=== PATIENT | female | born 1980 | race Caucasian/White ===

== ENCOUNTER 2016-12-02 03:09 | Day surgery (SDC) | payer OTHER ==
[~2016-12-02] VITALS: Ht 170.2 cm; Wt 60.7 kg
[2016-12-02] VITALS (8 sets, daily range): BP systolic 123–136; BP diastolic 80–92
[2016-12-02] MEDS ORDERED: ONDANSETRON 4MG/2ML VIAL (J2405) IV ONE (04:30)
[2016-12-02 04:35] LABS: CONTROL LINE HCG INT CTR LINE PRESENT
[2016-12-02 04:39] LABS: BASO % 0.5 % (0.0-1.0); EOS # 0.1 K/mm3 (0.0-0.50); LARGE UNSTAINED CELL # 0.1 K/mm3 (0.0-0.4); LARGE UNSTAINED CELL % 1.8 % (0.0-4.0); LYMPH # 2.5 K/mm3 (1.5-4.5); LYMPH % 29.7 % (24.0-44.0); MEAN CORPUSCULAR HEMOGLOBIN 31.4 pg (27.0-33.0); MEAN CORPUSCULAR HGB CONC 33.7 g/dl (32.0-36.5); MEAN CORPUSCULAR VOLUME 93.2 fl (80.0-96.0); MONO # 0.5 K/mm3 (0.0-0.8); MONO % 6.7 % (0.0-5.0); NEUTROPHILS # 4.7 K/mm3 (1.8-7.7); NEUTROPHILS % 60.3 % (36.0-66.0); PLATELET COUNT, AUTOMATED 263 k/mm3 (150-450); RED CELL DISTRIBUTION WIDTH 12.6 % (11.5-14.5); WHITE BLOOD COUNT 7.9 K/mm3 (4.0-10.0)
[2016-12-02 04:45] LABS: ALBUMIN/GLOBULIN RATIO 0.95 (1.00-1.93); ALKALINE PHOSPHATASE 83 U/L (45-117); ALT/SGPT 41 U/L (12-78); ANION GAP 10 MEQ/L (8-16); AST/SGOT 27 U/L (15-37); BILIRUBIN,DIRECT < 0.1 MG/DL (0.0-0.2); BILIRUBIN,TOTAL 0.2 MG/DL (0.2-1.0); BLOOD UREA NITROGEN 9 MG/DL (7-18); CALCIUM LEVEL 9.2 MG/DL (8.5-10.1); CARBON DIOXIDE LEVEL 26 MEQ/L (21-32); CHLORIDE LEVEL 102 MEQ/L (98-107); CREATININE FOR GFR 0.84 MG/DL (0.55-1.02); GLOMERULAR FILTRATION RATE > 60.0 (>60); GLUCOSE, FASTING 94 MG/DL (70-105); POTASSIUM SERUM 3.9 MEQ/L (3.5-5.1); SODIUM LEVEL 138 MEQ/L (136-145); TOTAL PROTEIN 8.2 GM/DL (6.4-8.2)
[2016-12-02] MEDS: MORPHINE 4 MG/ML 1ML SYRINGE IV PRN ×2 (05:04→05:44)
--- NOTE | 2016-12-02 05:10 | REPUSA ---
CLINICAL HISTORY: RUQ pain. TECHNIQUE: Realtime sonographic images were obtained in multiple projections. COMMENTS: The visualized liver is of uniform echo texture without evidence of mass or defect. There is no intra or extrahepatic biliary ductal dilatation. The common bile duct measures 4.1 mm. The gallbladder is physiologically distended with evidence of calculi. The gallbladder wall is thickened measuring 7.6 mm and there is no pericholecystic fluid. The visualized portions of the pancreas are unremarkable. Right kidney measures 9.6x4.5x4.2 cm. IMPRESSION: Cholelithiasis. Acute cholecystitis. Thank you for your kind referral of this patient.
[2016-12-02] MEDS ORDERED: GI COCKTAIL 50ML BTL(HYOSCYAMINE/MAALOX/LIDOCAINE VISCOUS)(1:3:1) PO ONE (06:30)
[2016-12-02] MEDS: HYDROmorphone HCL 1 MG/ML SYRINGE (J1170) IV PRN ×2 (06:50→09:24)
[2016-12-02] MEDS ORDERED: FLUO20TA28 PO (08:24)
[2016-12-02] MEDS ORDERED: ORTHTAB6 PO (08:24)
[2016-12-02] MEDS ORDERED: ACETAMINOPHEN TAB 650MG DOSE (2X325MG) PO PRN (08:45)
[2016-12-02] MEDS ORDERED: MORPHINE 4 MG/ML 1ML SYRINGE IV PRN (08:45)
[2016-12-02] MEDS ORDERED: ONDANSETRON 4MG/2ML VIAL (J2405) IV PRN ×2 (08:45→18:00)
[2016-12-02] MEDS ORDERED: HYDROmorphone HCL 1 MG/ML SYRINGE (J1170) As Ordered ONE (09:21)
[2016-12-02] MEDS: LR 1,000 ML IV SCH ×2 (09:23→19:06)
[2016-12-02] MEDS: metroNIDAZOLE 500 MG in APPROPRIATE DILUENT 1 EA IV SCH ×2 (10:40→19:06)
[2016-12-02] MEDS: CIPROFLOXACIN 400 MG in APPROPRIATE DILUENT 1 EA IV SCH (11:53)
[2016-12-02] MEDS ORDERED: LIDOCAINE 1% SDV INJ 30 ML VIAL As Ordered ONE (15:12)
[2016-12-02] MEDS ORDERED: BUPIVACAINE HCL 0.25% 30 ML VIAL As Ordered ONE (15:12)
[2016-12-02] MEDS ORDERED: SCOPOLAMINE 1.5 MG TRANSDERMAL As Ordered ONE (15:39)
[2016-12-02] MEDS ORDERED: KETOROLAC 60 MG/2 ML VIAL (J1885) As Ordered ONE (16:10)
[2016-12-02] MEDS ORDERED: LIDOCAINE 2% INJ 100 MG/5 ML SDV (FOR ANES.) As Ordered ONE (16:10)
[2016-12-02] MEDS ORDERED: ONDANSETRON 4MG/2ML VIAL (J2405) As Ordered ONE ×2 (16:10→17:34)
[2016-12-02] MEDS ORDERED: NEOSTIGMINE 1MG/ML 5 ML SYRINGE (J2710) As Ordered ONE ×2 (16:10→16:11)
[2016-12-02] MEDS ORDERED: METOCLOPRAMIDE INJ 10MG/2ML VIAL (J2765) As Ordered ONE (16:10)
[2016-12-02] MEDS ORDERED: MIDAZOLAM INJ 2 MG/2 ML VIAL (J2250) As Ordered ONE (16:10)
[2016-12-02] MEDS ORDERED: fentaNYL 250 MCG/5 ML INJECTION (J3010) As Ordered ONE (16:10)
[2016-12-02] MEDS ORDERED: PROPOFOL 200 MG/20 ML VIAL As Ordered ONE (16:10)
[2016-12-02] MEDS ORDERED: ROCURONIUM BROMIDE 50 MG/5 ML VIAL As Ordered ONE (16:11)
[2016-12-02] MEDS ORDERED: GLYCOPYRROLATE INJ 0.2 MG/ML 2 ML VIAL As Ordered ONE (16:11)
[2016-12-02] MEDS ORDERED: dexameTHASONE 4 MG/ML 1ML VIAL (J1100) As Ordered ONE (16:11)
[2016-12-02] MEDS ORDERED: NORCO, ANEXSIA 5/325MG TABLET (HYDROcodone/ACETAMINOPHEN) PO PRN ×2 (17:15)
[2016-12-02] MEDS ORDERED: fentaNYL 100 MCG/2 ML INJECTION (J3010) As Ordered ONE (17:35)
[2016-12-02] MEDS ORDERED: MEPERIDINE INJ 25 MG/ML VIAL (J2175) As Ordered ONE (17:42)
--- NOTE | 2016-12-02 17:48 | RO ---
DATE OF PROCEDURE: 12/02/2016 PREOPERATIVE DIAGNOSIS: Acute cholecystitis. POSTOPERATIVE DIAGNOSIS: Acute cholecystitis. OPERATIVE PROCEDURE: Laparoscopic cholecystectomy. SURGEON: Gurwinder Sherman MD PURCHASING MANAGER/SALES: ANESTHESIA: General. ESTIMATED BLOOD LOSS: 75 mL. COMPLICATIONS: None. REMARKS: The patient tolerated the procedure well. SPECIMENS: Gallbladder. FINDINGS: Acutely inflamed gallbladder with pericholecystic edema. There is a stone lodges at the neck of the gallbladder consistent with her 24 hour history of abdominal pain secondary to cholecystitis. DESCRIPTION OF PROCEDURE: Ms. Melton is a healthy 36-year-old female who presented with a day history of sudden onset of epigastric right upper quadrant pain; found to have evidence for acute cholecystitis and imaging. She had normal white cell count. She is tender over the right upper quadrant area with positive Raygoza's sign. She was started on ciprofloxacin, metronidazole. We awaited for availability of the operating room and was promptly brought to the OR once the OR was available. She was placed on the operating room table, supine. General endotracheal anesthesia started without any complication. Her abdomen prepped and draped in the usual sterile fashion. After a surgical time-out we began our surgery. A small incision created at the superior part of her umbilicus. Veress needle inserted in controlled fashion. CO2 insufflation started to pressure of 15 mmHg. Using the same incision, a 5 mm Visiport was placed under direct vision of the laparoscope. We used a 5 mm 30 degrees laparoscope throughout the case. She was placed on a reverse Trendelenburg position with the right side tilted up to further expose the gallbladder. Under direct vision an 11 mm epigastric port and two 5 mm ports in the right side were placed. Diagnostic laparoscopy. After removing the omentum, overlying the area of the gallbladder, the gallbladder was noted to be distended, acutely inflamed with pericholecystic edema. From palpating around the neck of the gallbladder, there was a stone lodged in the neck of the gallbladder. The peritoneum overlying the area of the neck of the gallbladder was circumferentially dissected starting medially, going anteriorly then laterally. Then using [place] instrument, the hepatocystic triangle was opened up. The cystic node of Clot was identified and underneath this, the cystic artery was noted to be crossing close to the anterior border of the cystic duct towards the medial side in its normal position, most likely rotated due to presence of stone at the cystic duct outlet. We continued dissecting this circumferentially and posteriorly towards the neck of the gallbladder. Once we freed off the cystic artery, we worked on freeing up the cystic duct but due to the course of the cystic artery; it was hard to fully free up without cutting the cystic artery, thus at this point, the cystic artery was clipped four times and then divided. We further brought down the attachments of the cystic artery to the duct and I was able to come around below the lodged stone at the outlet of the cystic duct and circumferentially dissected around this area. Once we got an adequate window, four clips were placed at the cystic duct and this was subsequently divided under direct vision. We then continued on dissecting the gallbladder off the liver bed. There was only minimal bleeding at the gallbladder bed and the cystic duct capsule which was easily controlled. The gallbladder was removed intact. It was placed in an Endo Catch bag, retrieved through the epigastric port site. On re-insufflation we inspected the gallbladder bed as well as the duct and the artery. The clips were noted to be in place. Some small edematous oozing noted at the gallbladder bed was easily controlled. Once we were sure of adequate hemostasis we suctioned off visible irrigant. We then deflated the abdomen. All ports removed. The epigastric fascial defect repaired with #0 Vicryl in a mattress fashion. All skin incisions closed with #4-0 Monocryl in subcuticular fashion. Steri-Strips and gauze dressings then placed. The patient was then promptly awakened, extubated, brought to recovery room, stable.
[2016-12-02] MEDS ORDERED: METOCLOPRAMIDE INJ 10MG/2ML VIAL (J2765) IV PRN (18:00)
[2016-12-02] MEDS ORDERED: MORPHINE 2 MG/ML 1ML SYRINGE IV PRN (18:00)
[2016-12-02] MEDS ORDERED: MEPERIDINE INJ 25 MG/ML VIAL (J2175) IV PRN (18:00)
[2016-12-02] MEDS ORDERED: LR 1,000 ML IV SCH (18:00)
[2016-12-02] MEDS ORDERED: fentaNYL 100 MCG/2 ML INJECTION (J3010) IV PRN (18:00)
[2016-12-02] MEDS ORDERED: PERCOCET 5MG/325MG TAB PO PRN (18:00)
[2016-12-03] MEDS: CIPROFLOXACIN 400 MG in APPROPRIATE DILUENT 1 EA IV SCH ×2 (00:01→11:00)
[2016-12-03 02:00] VITALS: BP 121/81
[2016-12-03] MEDS: metroNIDAZOLE 500 MG in APPROPRIATE DILUENT 1 EA IV SCH ×2 (02:10→10:00)
[2016-12-03] MEDS: LR 1,000 ML IV SCH (04:44)
[2016-12-03 06:00] VITALS: BP 128/78
[2016-12-03] MEDS ORDERED: FLUoxetine 20 MG CAP PO SCH (09:00)
[2016-12-03 10:00] VITALS: BP 124/82
[2016-12-03] MEDS ORDERED: NORCOTAB PO (12:06)
== END 2016-12-03 13:30 | disposition home or self-care (01) ==
LOC: M ED 04:10 → M SDC 08:35 → M MS5PR 09:45 → M SDC 12-03 13:30
PROVIDERS: ATTEND Surgery
DX: K81.0 Acute cholecystitis (principal); F41.9 Anxiety disorder, unspecified; Z88.0 Allergy status to penicillin; Z91.040 Latex allergy status; Z79.899 Other long term (current) drug therapy
CPT/HCPCS: 47562; 76705; 80048; 80076; 83690; 84703; 85025; 87040; 88304; 93041; 96374; 96375; 96376; 99284; J0744; J1100; J1170; J1885; J2175; J2250; J2405; J2710; J2765; J3010

== ENCOUNTER 2017-05-26 19:38 | Inpatient (IN) | payer OTHER ==
[~2017-05-26] VITALS: Ht 149.9 cm; Wt 56.0 kg
[~2017-05-26 19:38] MED LIST: FLUO20TA28 PO; NORCOTAB PO; ORTHTAB15 PO
[2017-05-26] MEDS ORDERED: PROZ20CA11 PO (19:52)
[2017-05-26] MEDS ORDERED: TRIN1TAB2 PO (21:57)
[2017-05-26 22:03] LABS: MEAN CORPUSCULAR HEMOGLOBIN 32.1 pg (27.0-33.0); MEAN CORPUSCULAR HGB CONC 35.3 g/dl (32.0-36.5); MEAN CORPUSCULAR VOLUME 90.9 fl (80.0-96.0); RED CELL DISTRIBUTION WIDTH 12.7 % (11.5-14.5); WHITE BLOOD COUNT 6.6 K/mm3 (4.0-10.0)
[2017-05-26 22:21] LABS: CONTROL LINE HCG INT CTR LINE PRESENT
[2017-05-26 22:24] LABS: METHADONE URINE NEGATIVE (NEGATIVE)
[2017-05-26 22:40] LABS: ALBUMIN 3.4 GM/DL (3.2-5.2); ALBUMIN/GLOBULIN RATIO 1.03 (1.00-1.93); ALKALINE PHOSPHATASE 103 U/L (45-117); ALT/SGPT 28 U/L (12-78); ANION GAP 5 MEQ/L (8-16); AST/SGOT 16 U/L (15-37); BILIRUBIN,DIRECT < 0.1 MG/DL (0.0-0.2); BILIRUBIN,TOTAL 0.3 MG/DL (0.2-1.0); BLOOD UREA NITROGEN 8 MG/DL (7-18); CALCIUM LEVEL 8.8 MG/DL (8.5-10.1); CARBON DIOXIDE LEVEL 29 MEQ/L (21-32); CHLORIDE LEVEL 105 MEQ/L (98-107); CREATININE FOR GFR 0.79 MG/DL (0.55-1.02); GLOMERULAR FILTRATION RATE > 60.0 (>60); GLUCOSE, FASTING 127 MG/DL (70-105); POTASSIUM SERUM 4.2 MEQ/L (3.5-5.1); SODIUM LEVEL 139 MEQ/L (136-145); TOTAL PROTEIN 6.7 GM/DL (6.4-8.2)
[2017-05-26] MEDS ORDERED: MAALOX 30 ML SUSP *UDC PO PRN (23:00)
[2017-05-26] MEDS ORDERED: traZODone 50 MG TAB PO PRN (23:00)
[2017-05-26] MEDS ORDERED: MOM 30ML SUSPENSION UDC PO PRN (23:00)
[2017-05-26 23:48] VITALS: BP 149/88
[2017-05-27] MEDS ORDERED: **UNRESOLVED NON-FORMULARY MED ORDER XX SCH (00:01)
[2017-05-27] MEDS: ACETAMINOPHEN TAB 650MG DOSE (2X325MG) PO PRN ×2 (01:17→20:43)
[2017-05-27 06:36] VITALS: BP 122/74
[2017-05-27] MEDS: TRINESSA LO PO SCH (08:41)
--- NOTE | 2017-05-27 08:42 | HPEPDOC ---
Medical History and Physical Date of Admission May 27, 2017 History and Physical PCP: Sophie ATTENDING: Dr. To Omer HPI: 37yoF admitted to [facility] for unspecified depressive disorder, being medically examined today. No acute medical complaints today. Denies any fevers, chills, weakness, fatigue, ESPARZA, CP, SOB, cough, palpitations, abdominal pain, N/V /D or changes in bowel or bladder habits. 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 ROS: As noted in HPI, otherwise 11pt ROS of systems reviewed and remarkable only for LMP 05/15/17. PE: GEN: 37 yo F, appears stated age. Well-nourished, well developed. No acute distress. Alert and oriented x 3. Flat affect, avoids eye contact. HEENT: Normocephalic, atraumatic. Pupils are equal, round, and reactive to light. Extraocular movements are intact. No nystagmus appreciated. Sclera are nonicteric. Conjunctiva without injection. Nose midline. Nasal turbinates without bogginess. EACs both patent BL. TMs both visualized and lara with good cone of light, no bulging or erythema. No facial asymmetry. Moist mucous membranes. Dentition fair. Pharynx pink and moist, no cobblestoning. Neck supple , trachea midline. No lymphadenopathy or thyromegaly appreciated. CHEST: Regular rate and rhythm, +S1, +S2 LUNGS: Clear to auscultation bilaterally. No wheezes, rales, or rhonchi. Breathing appears symmetric and easy. Patient is speaking in full sentences. No accessory muscle use. ABD: Round, soft, non-tender, non-distended. +Bowel sounds throughout. No rebound or guarding. No costovertebral angle tenderness. EXT: Pulses 2+ bilaterally dorsalis pedis and radial. No lower extremity edema appreciated. SKIN: [place], dry, warm. Capillary refill <2sec. No rashes. NEURO: Alert and oriented x 3. Cranial nerves III-XII are intact. No focal deficits appreciated. EKG: Pending. A&P: 37yoF admitted to [facility] for unspecified depressive disorder, 1. Psych. Plan per Psychiatry. Obtain baseline EKG to assure the safety of psychiatric medications as they can prolong the QT interval. 2. Patient remains on OCP. 3. Abnormal TSH. Recheck TFTs in a.m. 4. Follow up with PCP on discharge. 5. Staff member Cristina ANDRADE present throughout exam.. Vital Signs Vital Signs Date Time Temp Pulse Resp B/P (MAP) Pulse Ox O2 Delivery O2 Flow Rate FiO2 05/27/17 06:36 97.6 101 16 122/74 (90) 05/26/17 23:48 97 Room Air Laboratory Data Labs 24H Laboratory Tests 2 05/26/17 21:45: Anion Gap 5L, Glomerular Filtration Rate > 60.0, Calcium Level 8.8, Aspartate Amino Transf (AST/SGOT) 16, Alanine Aminotransferase (ALT/SGPT) 28, Alkaline Phosphatase 103, Total Bilirubin 0.3, Direct Bilirubin < 0.1, Total Protein 6.7 , Albumin 3.4, Albumin/Globulin Ratio 1.03, Thyroid Stimulating Hormone (TSH) 5.260H, Human Chorionic Gonadotropin, Qual NEGATIVE, Salicylates Level < 1.7L, Urine Amphetamines Screen NEGATIVE, Urine Benzodiazepines Screen NEGATIVE, Urine Opiates Screen NEGATIVE, Urine Methadone Screen NEGATIVE, Acetaminophen Level < 2.0L, Urine Barbiturates Screen NEGATIVE, Urine Phencyclidine Screen NEGATIVE, Urine Cocaine Metabolite Screen NEGATIVE, Urine Cannabinoids Screen NEGATIVE, Ethyl Alcohol Level < 0.003 CBC/BMP Laboratory Tests 05/26/17 21:45 Red Blood Count 3.87 L, Mean Corpuscular Volume 90.9, Mean Corpuscular Hemoglobin 32.1, Mean Corpuscular Hemoglobin Concent 35.3, Red Cell Distribution Width 12.7 Home Medications Scheduled (Trinessa Lo 0.18/0.215/0.25 mg-25 Mcg) 1 Tab Tab, 1 TAB PO DAILY Fluoxetine HCl (Prozac) 20 Mg Cap, 40 MG PO DAILY Allergies Coded Allergies: Penicillins (Verified Allergy, Severe, ANAPHYLAXIS, 12/02/16) Priscila Howell May 27, 2017 08:42
[2017-05-27] MEDS ORDERED: FLUoxetine 20 MG CAP PO SCH (09:00)
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
[2017-05-27] MEDS: VENLAFAXINE **XR** 37.5 MG CAPSULE PO SCH (13:06)
[2017-05-27] MEDS: cloNIDine 0.1 MG TAB PO SCH ×2 (13:06→20:43)
[2017-05-27 18:00] VITALS: BP 103/60
[2017-05-27] MEDS: traZODone 50 MG TAB PO SCH (20:42)
[2017-05-27] MEDS: hydrOXYzine 25 MG TAB PO PRN (20:43)
--- NOTE | 2017-05-27 22:28 | ECGEPIP ---
Stationary ECG Study [facility] Test Date: 2017-05-27 Pat Name: DANY PEDERSON Department: Room: [place] [address] Gender: F Histology Technician: MASON : 1980 Requested By: Priscila Howell Order Number: [id number] Reading MD: Ghulam Stroud Measurements Intervals [place] Rate: 71 P: GA: 0 QRS: 29 QRSD: 86 T: 35 QT: 395 QTc: 430 Interpretive Statements Normal sinus rhythm Low QRS complex voltage in the limb leads Incomplete right bundle branch block Nonspecific T wave abnormality Comparison tracing not on file Electronically Signed On 05-27-2017 22:28:26 EDT by Ghulam Stroud
[2017-05-28 06:45] VITALS: BP 113/64
[2017-05-28] MEDS: TRINESSA LO PO SCH (08:24)
[2017-05-28] MEDS: VENLAFAXINE **XR** 37.5 MG CAPSULE PO SCH (08:24)
[2017-05-28] MEDS: cloNIDine 0.1 MG TAB PO SCH ×2 (08:26→21:28)
[2017-05-28] MEDS ORDERED: FLUoxetine 20 MG CAP PO SCH ×2 (09:00)
[2017-05-28] MEDS: hydrOXYzine 25 MG TAB PO PRN (11:19)
--- NOTE | 2017-05-28 16:13 | MHIPNPDOC ---
[facility] Progress Note Progress Note DATE OF SERVICE: 05/28/17 HISTORY: day 3 of admission for PTSD treatment. VITAL SIGNS: See below. NEW TEST RESULTS: repeat labs: CURRENT MEDICATIONS: See below. MENTAL STATUS EXAMINATION: General appearance: Patient is a 37year old female, who appears younger than her age, in hospital attire, long blonde hair, laying on bed, cooperative. Speech: spontaneous. Thought processes: goal directed Thought content: appropriate. Abstract reasoning and computation: good Description of associations: good Description of abnormal or psychotic thoughts: suicidal thoughts without plan or intent, can't stop thinking of suicide, no psychosis illicited.. Judgment: fair. Insight: good. Orientation: well oriented x 4.. Recent and remote memory: intact. Attention span and concentration: good. Fund of knowledge: Full Mood: depressed Affect: highly anxious, able to smile DIAGNOSES: 1. PTSD, severe 2. Depression, single episode without psychotic features ASSESSMENT:Pt is aware that the [facility] is assisting in getting her home. has made arrangements for pets and has told Kenyetta not to worry. Kenyetta is still very tense and anxious and has a difficult time socializing at this time. She will attend programming as she can tolerate. She was informed today that our pharmacy does not carry Vyvanse so we will start her on a bit of Adderall and hopefully this will give her some relief from ADD symptoms. She reports sleeping well until awakened by someone coming into the room. It startled her and she could not return to sleep very easily. Therefore she is tired today. Appetite remains poor. Not thinking of suicide and wants to improve her PTSD symptoms. She is not quite stable and we are adjusting meds. Will observe reaction to Adderall and its effect on her mental status. MANAGEMENT PLAN: continue meds, monitor safety and sleep. support pt as she begins to address her PTSD symptoms. encourage prn hydroxyzine for anxiety as Effexor will take weeks to become effective. Pt wants to fu at [facility] for meds and therapy. If there is a therapist well trained in trauma therapy she would benefit from that. TIME SPENT: 15 minutes. Vital Signs Vital Signs Date Time Temp Pulse Resp B/P (MAP) Pulse Ox O2 Delivery O2 Flow Rate FiO2 05/28/17 08:26 88/56 05/28/17 06:45 97.8 59 20 05/26/17 23:48 97 Room Air Current Medications Current Medications Acetaminophen (Tylenol Tab) 650 mg Q6HP PRN PO HEADACHE or DISCOMFORT Last administered on 05/27/17 20:43; Start 05/26/17 at 23:00; Stop 06/25/17 at 22: 59 Al Hydrox/Mg Hydrox/Simethicone (Mylanta) 30 ml Q4HP PRN PO HEARTBURN/ INDIGESTION; Start 05/26/17 at 23:00; Stop 06/25/17 at 22:59 Amphetamine/ Dextroamphetamine (Adderall) 20 mg QAM PO ; Start 05/29/17 at 09:00 ; Stop 06/05/17 at 08:59 Clonidine HCl (Catapres) 0.1 mg BID PO Last administered on 05/27/17 20:43; Start 05/27/17 at 09:00; Stop 06/26/17 at 08:59 Fluoxetine HCl (PROzac) 20 mg DAILY PO Last administered on 05/27/17 08:41; Start 05/27/17 at 09:00; Stop 05/27/17 at 11:14; Status DC Fluoxetine HCl (PROzac) 40 mg DAILY PO ; Start 05/28/17 at 09:00; Stop at 08:59; Status Cancel Fluoxetine HCl (PROzac) 40 mg DAILY PO ; Start 05/28/17 at 09:00; Stop at 08:59; Status UNV Home Med (Med Rec Complete!) ASDIRECTED XX ; Start 05/26/17 at 22:00; Stop at 22:01; Status DC Hydroxyzine HCl (Atarax) 25 mg Q4HP PRN PO ANXIETY/AGITATION Last administered on 05/28/17 11:19; Start 05/27/17 at 13:00; Stop 06/26/17 at 12:59 Magnesium Hydroxide (Milk Of Magnesia) 30 ml DAILYPRN PRN PO CONSTIPATION; Start 05/26/17 at 23:00; Stop 06/25/17 at 22:59 Miscellaneous (Unresolved Non-Formulary Med Order) SEE LABEL COMMENTS UNRESOLVED XX ; Start 05/27/17 at 00:01; Stop 05/27/17 at 04:30; Status DC Patient Own Medication (Patient'S Own Med) 1 ea DAILY PO Last administered on 08:24; Start 05/27/17 at 09:00; Stop 06/26/17 at 08:59 Trazodone HCl (Desyrel) 50 mg QHS PO Last administered on 05/27/17 20:42; Start 05/27/17 at 21:00; Stop 06/25/17 at 22:59 Trazodone HCl (Desyrel) 50 mg QHSP PRN PO INSOMNIA Last administered on 01:17; Start 05/26/17 at 23:00; Stop 05/27/17 at 23:00; Status DC Venlafaxine HCl (Effexor Xr) 37.5 mg QAM PO Last administered on 05/28/17 08:24; Start 05/27/17 at 09:00; Stop 06/26/17 at 08:59 Allergies Coded Allergies: Penicillins (Verified Allergy, Severe, ANAPHYLAXIS, 12/02/16) Shruti Kingsley May 28, 2017 16:13
[2017-05-28 18:33] VITALS: BP 102/56
[2017-05-28] MEDS: traZODone 50 MG TAB PO SCH (21:28)
[2017-05-29 06:50] VITALS: BP 95/62
[2017-05-29 07:42] LABS: THYROXINE (T4) 9.4 UG/DL (4.5-12.0)
[2017-05-29] MEDS: TRINESSA LO PO SCH (08:31)
[2017-05-29] MEDS: VENLAFAXINE **XR** 37.5 MG CAPSULE PO SCH (08:31)
[2017-05-29] MEDS: ADDERALL 5 MG TAB PO SCH (08:33)
[2017-05-29] MEDS: cloNIDine 0.1 MG TAB PO SCH ×3 (08:33→20:58)
[2017-05-29] MEDS: hydrOXYzine 25 MG TAB PO PRN ×3 (11:21→21:59)
--- NOTE | 2017-05-29 17:24 | MHIPNPDOC ---
[facility] Progress Note Progress Note DATE OF SERVICE: 05/29/17 HISTORY: day 4 of admission for exacerbation of PTSD symptoms. VITAL SIGNS: See below. NEW TEST RESULTS: repeat TSH within normal limits. CURRENT MEDICATIONS: See below. MENTAL STATUS EXAMINATION: General appearance: Patient is a 37year old female, who appears younger than her age, in hospital attire, long blonde hair, blue eyes, crying, distraught, cooperative. Speech: spontaneous. Thought processes: goal directed Thought content: appropriate. Abstract reasoning and computation: good Description of associations: good Description of abnormal or psychotic thoughts: suicidal thoughts without plan or intent, can't stop thinking of suicide, no psychosis illicited.. Judgment: fair. Insight: good. Orientation: well oriented x 4.. Recent and remote memory: intact. Attention span and concentration: good. Fund of knowledge: Full Mood: depressed Affect: highly anxious DIAGNOSIS: PTSD, severe, acute Depression, single episode without psychotic features ASSESSMENT:pt reports a good night's sleep. she is resuming Adderall today and we will monitor if useful during this hospitalization. It may make her anxiety worse and need to be dc'd if it does. pt reports feeling safe and secure while on the unit. she remains very raw in her emotions and still is in the crisis stage of her treatment. She is progressing and doing well. Less tearful than she was 2 days ago. She is getting along well with peers. She participated in treatment planning today. She expressed concern that she did not receive clonidine consistently and felt it was helpful in reducing her anxiety so this was addressed. will be stateside on Friday. MANAGEMENT PLAN: continue Effexor taper, monitor and treat anxiety, monitor sleep, continue therapeutic engagement, TIME SPENT: 15 minutes. Vital Signs Vital Signs Date Time Temp Pulse Resp B/P (MAP) Pulse Ox O2 Delivery O2 Flow Rate FiO2 05/29/17 11:39 120/78 05/29/17 08:33 Room Air 05/29/17 06:50 97.1 68 14 05/26/17 23:48 97 Laboratory Data 24H Labs Laboratory Tests 2 05/29/17 06:55: Thyroid Stimulating Hormone (TSH) 1.620, Free Thyroxine Index 2.8, Thyroxine (T4 ) 9.4, Triiodothyronine (T3) Uptake 30 Current Medications Current Medications Acetaminophen (Tylenol Tab) 650 mg Q6HP PRN PO HEADACHE or DISCOMFORT Last administered on 05/27/17 20:43; Start 05/26/17 at 23:00; Stop 06/25/17 at 22: 59 Al Hydrox/Mg Hydrox/Simethicone (Mylanta) 30 ml Q4HP PRN PO HEARTBURN/ INDIGESTION; Start 05/26/17 at 23:00; Stop 06/25/17 at 22:59 Amphetamine/ Dextroamphetamine (Adderall) 20 mg QAM PO Last administered on 08:33; Start 05/29/17 at 09:00; Stop 06/05/17 at 08:59 Clonidine HCl (Catapres) 0.1 mg BID PO Last administered on 05/29/17 11:39; Start 05/27/17 at 09:00; Stop 06/26/17 at 08:59 Fluoxetine HCl (PROzac) 20 mg DAILY PO Last administered on 05/27/17 08:41; Start 05/27/17 at 09:00; Stop 05/27/17 at 11:14; Status DC Fluoxetine HCl (PROzac) 40 mg DAILY PO ; Start 05/28/17 at 09:00; Stop at 08:59; Status Cancel Fluoxetine HCl (PROzac) 40 mg DAILY PO ; Start 05/28/17 at 09:00; Stop at 08:59; Status UNV Home Med (Med Rec Complete!) ASDIRECTED XX ; Start 05/26/17 at 22:00; Stop at 22:01; Status DC Hydroxyzine HCl (Atarax) 25 mg Q4HP PRN PO ANXIETY/AGITATION Last administered on 05/29/17 11:21; Start 05/27/17 at 13:00; Stop 06/26/17 at 12:59 Magnesium Hydroxide (Milk Of Magnesia) 30 ml DAILYPRN PRN PO CONSTIPATION; Start 05/26/17 at 23:00; Stop 06/25/17 at 22:59 Miscellaneous (Unresolved Non-Formulary Med Order) SEE LABEL COMMENTS UNRESOLVED XX ; Start 05/27/17 at 00:01; Stop 05/27/17 at 04:30; Status DC Patient Own Medication (Patient'S Own Med) 1 ea DAILY PO Last administered on 08:31; Start 05/27/17 at 09:00; Stop 06/26/17 at 08:59 Trazodone HCl (Desyrel) 50 mg QHS PO Last administered on 05/28/17 21:28; Start 05/27/17 at 21:00; Stop 06/25/17 at 22:59 Trazodone HCl (Desyrel) 50 mg QHSP PRN PO INSOMNIA Last administered on 01:17; Start 05/26/17 at 23:00; Stop 05/27/17 at 23:00; Status DC Venlafaxine HCl (Effexor Xr) 37.5 mg QAM PO Last administered on 05/29/17 08:31; Start 05/27/17 at 09:00; Stop 05/29/17 at 09:46; Status DC Venlafaxine HCl (Effexor Xr) 75 mg QAM PO ; Start 05/30/17 at 09:00; Stop 06/29/17 at 08:59 Allergies Coded Allergies: Penicillins (Verified Allergy, Severe, ANAPHYLAXIS, 12/02/16) Shruti Kingsley May 29, 2017 17:24
[2017-05-29 18:00] VITALS: BP 90/62
[2017-05-29] MEDS: traZODone 50 MG TAB PO SCH (20:57)
[2017-05-30 06:00] VITALS: BP 94/56
[2017-05-30 06:31] VITALS: BP 94/56
[2017-05-30] MEDS: ADDERALL 5 MG TAB PO SCH (08:19)
[2017-05-30] MEDS: cloNIDine 0.1 MG TAB PO SCH ×2 (08:19→20:35)
[2017-05-30] MEDS: TRINESSA LO PO SCH (08:20)
[2017-05-30] MEDS: VENLAFAXINE **XR** 75MG CAPSULE PO SCH (08:20)
[2017-05-30] MEDS: ACETAMINOPHEN TAB 650MG DOSE (2X325MG) PO PRN (12:38)
[2017-05-30] MEDS: hydrOXYzine 25 MG TAB PO PRN ×2 (12:38→18:53)
--- NOTE | 2017-05-30 16:04 | MHIPNPDOC ---
[facility] [place] Progress Note Progress Note DATE OF SERVICE: 05/30/17 HISTORY: day 5 of admission for PTSD VITAL SIGNS: See below. NEW TEST RESULTS: na CURRENT MEDICATIONS: See below. MENTAL STATUS EXAMINATION: General appearance: Patient is a 37year old female, very petite, who appears younger than her age, in hospital attire, long blonde hair, blue eyes, cooperative. Speech: spontaneous. high pitch voice Thought processes: goal directed Thought content: appropriate. Abstract reasoning and computation: good Description of associations: good Description of abnormal or psychotic thoughts: suicidal thoughts without plan or intent, can't stop thinking of suicide, no psychosis illicited.. Judgment: fair. Insight: good. Orientation: well oriented x 4.. Recent and remote memory: intact. Attention span and concentration: good. Fund of knowledge: Full Mood: depressed Affect: highly anxious DIAGNOSIS: PTSD, severe, acute Depression, single episode without psychotic features Substance use disorder ASSESSMENT:pt is attending all programing and reports benefit from the therapeutic activities. She interacts appropriately on the unit. She is less tearful and less anxious but is still easily startled and has persistent anxiety. She is progressing. Sleep remains problematic. She does not like to stay awake after dinner but when she tries to go to sleep at 9 p.m. onset of sleep is several hours. Pt is not currently having suicidal thoughts. She is highly motivated to improve her emotional condition. MANAGEMENT PLAN: increase trazodone to 100 mg for insomnia, enc regular use of hydroxyzine for anxiety. Spoke with her about this again today. Effexor will take some time to become therapeutic. Monitor safety and support independence, self-confidence. TIME SPENT: 15 minutes. Vital Signs Vital Signs Date Time Temp Pulse Resp B/P (MAP) Pulse Ox O2 Delivery O2 Flow Rate FiO2 05/30/17 08:19 97/63 05/30/17 06:31 97.7 71 16 05/29/17 08:33 Room Air 05/26/17 23:48 97 Current Medications Current Medications Acetaminophen (Tylenol Tab) 650 mg Q6HP PRN PO HEADACHE or DISCOMFORT Last administered on 05/30/17t 12:38; Start 05/26/17 at 23:00; Stop 06/25/17 at 22: 59 Al Hydrox/Mg Hydrox/Simethicone (Mylanta) 30 ml Q4HP PRN PO HEARTBURN/ INDIGESTION; Start 05/26/17 at 23:00; Stop 06/25/17 at 22:59 Amphetamine/ Dextroamphetamine (Adderall) 20 mg QAM PO Last administered on 08:19; Start 05/29/17 at 09:00; Stop 06/05/17 at 08:59 Clonidine HCl (Catapres) 0.1 mg BID PO Last administered on 05/30/17 08:19; Start 05/27/17 at 09:00; Stop 06/26/17 at 08:59 Fluoxetine HCl (PROzac) 20 mg DAILY PO Last administered on 05/27/17 08:41; Start 05/27/17 at 09:00; Stop 05/27/17 at 11:14; Status DC Fluoxetine HCl (PROzac) 40 mg DAILY PO ; Start 05/28/17 at 09:00; Stop at 08:59; Status Cancel Fluoxetine HCl (PROzac) 40 mg DAILY PO ; Start 05/28/17 at 09:00; Stop at 08:59; Status UNV Home Med (Med Rec Complete!) ASDIRECTED XX ; Start 05/26/17 at 22:00; Stop at 22:01; Status DC Hydroxyzine HCl (Atarax) 25 mg Q4HP PRN PO ANXIETY/AGITATION Last administered on 05/30/17 12:38; Start 05/27/17 at 13:00; Stop 06/26/17 at 12:59 Magnesium Hydroxide (Milk Of Magnesia) 30 ml DAILYPRN PRN PO CONSTIPATION Last administered on 05/30/17 10:05; Start 05/26/17 at 23:00; Stop 06/25/17 at 22: 59 Miscellaneous (Unresolved Non-Formulary Med Order) SEE LABEL COMMENTS UNRESOLVED XX ; Start 05/27/17 at 00:01; Stop 05/27/17 at 04:30; Status DC Patient Own Medication (Patient'S Own Med) 1 ea DAILY PO Last administered on 08:20; Start 05/27/17 at 09:00; Stop 06/26/17 at 08:59 Trazodone HCl (Desyrel) 50 mg QHS PO Last administered on 05/29/17 20:57; Start 05/27/17 at 21:00; Stop 06/25/17 at 22:59 Trazodone HCl (Desyrel) 50 mg QHSP PRN PO INSOMNIA Last administered on 01:17; Start 05/26/17 at 23:00; Stop 05/27/17 at 23:00; Status DC Venlafaxine HCl (Effexor Xr) 37.5 mg QAM PO Last administered on 05/29/17 08:31; Start 05/27/17 at 09:00; Stop 05/29/17 at 09:46; Status DC Venlafaxine HCl (Effexor Xr) 75 mg QAM PO Last administered on 05/30/17 08 :20; Start 05/30/17 at 09:00; Stop 06/29/17 at 08:59 Allergies Coded Allergies: Penicillins (Verified Allergy, Severe, ANAPHYLAXIS, 12/02/16) Shruti Kingsley May 30, 2017 16:04
[2017-05-30 18:20] VITALS: BP 100/61
[2017-05-30] MEDS: traZODone 100 MG TAB PO SCH (20:34)
[2017-05-31 07:02] VITALS: BP 90/60
[2017-05-31] MEDS: TRINESSA LO PO SCH (09:24)
[2017-05-31] MEDS: VENLAFAXINE **XR** 75MG CAPSULE PO SCH (09:24)
[2017-05-31] MEDS: ADDERALL 5 MG TAB PO SCH (09:24)
[2017-05-31] MEDS: cloNIDine 0.1 MG TAB PO SCH ×2 (09:25→20:17)
[2017-05-31] MEDS: hydrOXYzine 25 MG TAB PO PRN ×2 (11:42→20:16)
[2017-05-31] MEDS ORDERED: MAGNESIUM CITRATE 300 ML BTL PO ONE (13:45)
[2017-05-31 18:13] VITALS: BP 109/68
[2017-05-31] MEDS: traZODone 100 MG TAB PO SCH (20:16)
[2017-05-31] MEDS: ACETAMINOPHEN TAB 650MG DOSE (2X325MG) PO PRN (20:17)
[2017-06-01 06:35] VITALS: BP 103/63
[2017-06-01] MEDS: cloNIDine 0.1 MG TAB PO SCH ×2 (08:13→20:49)
[2017-06-01] MEDS: ADDERALL 5 MG TAB PO SCH (08:13)
[2017-06-01] MEDS: VENLAFAXINE **XR** 75MG CAPSULE PO SCH (08:13)
[2017-06-01] MEDS: TRINESSA LO PO SCH (08:13)
[2017-06-01] MEDS: hydrOXYzine 25 MG TAB PO PRN (17:03)
[2017-06-01 18:08] VITALS: BP 92/54
[2017-06-01] MEDS: traZODone 100 MG TAB PO SCH (20:49)
[2017-06-02 06:32] VITALS: BP 100/63
[2017-06-02] MEDS: cloNIDine 0.1 MG TAB PO SCH ×2 (08:02→22:02)
[2017-06-02] MEDS: VENLAFAXINE **XR** 75MG CAPSULE PO SCH (08:02)
[2017-06-02] MEDS: ADDERALL 5 MG TAB PO SCH (08:02)
[2017-06-02] MEDS: TRINESSA LO PO SCH (08:02)
--- NOTE | 2017-06-02 13:45 | MHIPNPDOC ---
[facility] Progress Note Progress Note DATE OF SERVICE: 06/02/17 HISTORY: day 8 of admission for crisis due to PTSD VITAL SIGNS: See below. NEW TEST RESULTS: na CURRENT MEDICATIONS: See below. MENTAL STATUS EXAMINATION: General appearance: Patient is a 37year old female, very petite, who appears younger than her age, in hospital attire, long blonde hair, blue eyes, cooperative. Speech: spontaneous. high pitch voice Thought processes: goal directed Thought content: appropriate. Abstract reasoning and computation: good Description of associations: good Description of abnormal or psychotic thoughts: suicidal thoughts without plan or intent, can't stop thinking of suicide, no psychosis illicited.. Judgment: fair. Insight: good. Orientation: well oriented x 4. Recent and remote memory: intact. Attention span and concentration: good. Fund of knowledge: Full Mood: depressed Affect: highly anxious DIAGNOSIS: PTSD, severe, acute Depression, single episode without psychotic features Substance use disorder ASSESSMENT:pt continues to feel panic/anxiety upon awakening each day. pt has reached out to a friend in her community and that is going well for her. It was a big risk for her to this and she is so happy she did. pt is attending programing and progressing well. Anxiety still remains high but she is not as tearful as she was last week. She keeps herself busy doing constructive things. Her friend is caring for her dogs and brings in pictures of them which delights Kenyetta. Kenyetta interacts well with her roommate and is observed in the milieu. she states her preference is to "hide in my room" but she is trying hard not to do this and she is getting stronger due to the support she feels she has on the unit. Pt is sleeping fairly well, energy is improving but she still gets tired from the stress that she is dealing with. She demonstrates good insight into her needs and realizes recovery will take time. She is happily anticipating the return of her in 2 days. We discussed setting limits with family/friends so she can concentrate on her emotional wellness and not overcommit herself. She needs to be her own first priority for a time. Pt had difficulty with constipation which has now been resolved. MANAGEMENT PLAN: We will try to anticipate discharge for Kenyetta at the end of the week, or Friday. She will be referred to [facility] for med mgt and therapy. She wants the address for the support group in the area for people with PTSD and was told it will be in her discharge packet. Will add buspar for it's anxiolytic effects. TIME SPENT: 15 minutes. Vital Signs Vital Signs Date Time Temp Pulse Resp B/P (MAP) Pulse Ox O2 Delivery O2 Flow Rate FiO2 06/02/17 08:02 100/63 06/02/17 06:32 98.9 54 16 Room Air Current Medications Current Medications Acetaminophen (Tylenol Tab) 650 mg Q6HP PRN PO HEADACHE or DISCOMFORT Last administered on 05/31/17 20:17; Start 05/26/17 at 23:00; Stop 06/25/17 at 22: 59 Al Hydrox/Mg Hydrox/Simethicone (Mylanta) 30 ml Q4HP PRN PO HEARTBURN/ INDIGESTION; Start 05/26/17 at 23:00; Stop 06/25/17 at 22:59 Amphetamine/ Dextroamphetamine (Adderall) 20 mg QAM PO Last administered on 08:02; Start 05/29/17 at 09:00; Stop 06/05/17 at 08:59 Clonidine HCl (Catapres) 0.1 mg BID PO Last administered on 06/02/17 08:02; Start 05/27/17 at 09:00; Stop 06/26/17 at 08:59 Fluoxetine HCl (PROzac) 20 mg DAILY PO Last administered on 05/27/17 08:41; Start 05/27/17 at 09:00; Stop 05/27/17 at 11:14; Status DC Fluoxetine HCl (PROzac) 40 mg DAILY PO ; Start 05/28/17 at 09:00; Stop at 08:59; Status Cancel Fluoxetine HCl (PROzac) 40 mg DAILY PO ; Start 05/28/17 at 09:00; Stop at 08:59; Status UNV Home Med (Med Rec Complete!) ASDIRECTED XX ; Start 05/26/17 at 22:00; Stop at 22:01; Status DC Hydroxyzine HCl (Atarax) 25 mg Q4HP PRN PO ANXIETY/AGITATION Last administered on 06/01/17 17:03; Start 05/27/17 at 13:00; Stop 06/26/17 at 12:59 Magnesium Hydroxide (Milk Of Magnesia) 30 ml DAILYPRN PRN PO CONSTIPATION Last administered on 05/30/17 10:05; Start 05/26/17 at 23:00; Stop 06/25/17 at 22: 59 Miscellaneous (Unresolved Non-Formulary Med Order) SEE LABEL COMMENTS UNRESOLVED XX ; Start 05/27/17 at 00:01; Stop 05/27/17 at 04:30; Status DC Patient Own Medication (Patient'S Own Med) 1 ea DAILY PO Last administered on 08:02; Start 05/27/17 at 09:00; Stop 06/26/17 at 08:59 Trazodone HCl (Desyrel) 50 mg QHS PO Last administered on 05/29/17 20:57; Start 05/27/17 at 21:00; Stop 05/30/17 at 16:03; Status DC Trazodone HCl (Desyrel) 50 mg QHSP PRN PO INSOMNIA Last administered on 01:17; Start 05/26/17 at 23:00; Stop 05/27/17 at 23:00; Status DC Trazodone HCl (Desyrel) 100 mg QHS PO Last administered on 06/01/17 20:49; Start 05/30/17 at 21:00; Stop 06/29/17 at 20:59 Venlafaxine HCl (Effexor Xr) 37.5 mg QAM PO Last administered on 05/29/17 08:31; Start 05/27/17 at 09:00; Stop 05/29/17 at 09:46; Status DC Venlafaxine HCl (Effexor Xr) 75 mg QAM PO Last administered on 06/02/17 08 :02; Start 05/30/17 at 09:00; Stop 06/29/17 at 08:59 Allergies Coded Allergies: Penicillins (Verified Allergy, Severe, ANAPHYLAXIS, 12/02/16) Shruti Kingsley Jun 02, 2017 13:45
[2017-06-02] MEDS: busPIRone 10 MG TAB PO SCH ×2 (16:23→22:02)
[2017-06-02] MEDS: hydrOXYzine 25 MG TAB PO PRN (16:24)
[2017-06-02 18:00] VITALS: BP 94/50
[2017-06-02] MEDS: traZODone 100 MG TAB PO SCH (22:02)
[2017-06-03 06:20] VITALS: BP 101/60
[2017-06-03] MEDS: TRINESSA LO PO SCH (08:09)
[2017-06-03] MEDS: ADDERALL 5 MG TAB PO SCH (08:09)
[2017-06-03] MEDS: VENLAFAXINE **XR** 37.5 MG CAPSULE PO SCH (08:09)
[2017-06-03] MEDS: busPIRone 10 MG TAB PO SCH ×3 (08:09→20:00)
[2017-06-03] MEDS: cloNIDine 0.1 MG TAB PO SCH ×2 (08:10→20:00)
[2017-06-03] MEDS: hydrOXYzine 25 MG TAB PO PRN (12:55)
--- NOTE | 2017-06-03 16:54 | MHIPNPDOC ---
[facility] Progress Note Progress Note DATE OF SERVICE: 06/03/17 HISTORY: day 9 of admission for PTSD crisis/treatment VITAL SIGNS: See below. NEW TEST RESULTS: na CURRENT MEDICATIONS: See below. MENTAL STATUS EXAMINATION: General appearance: Patient is a 37year old female, very petite, who appears younger than her age, in hospital attire, long blonde hair, blue eyes, cooperative. Speech: spontaneous. high pitch voice Thought processes: goal directed Thought content: appropriate. Abstract reasoning and computation: good Description of associations: good Description of abnormal or psychotic thoughts: denies suicidal thoughts, no psychosis illicited. Judgment: fair. Insight: good. Orientation: well oriented x 4. Recent and remote memory: intact. Attention span and concentration: good. Fund of knowledge: Full Mood: depressed Affect: anxious DIAGNOSIS: PTSD, severe, acute Depression, single episode without psychotic features Substance use disorder ASSESSMENT: continues to work on herself and gain skills needed for recovery from her PTSD challenges. She is learning a lot on the unit and feels safe and supported. She is doing well in groups and gets along well with everyone. Pt says Adderall is helpful and not increasing her anxiety or bothering her sleep. Appetite is low but it usually is. Mood and anxiety improving and much better than 9 days ago. pt has much more control over self and feelings. She will push herself to do things she knows are good for her even if she would rather not do them. Very motivated. She will do well in therapy. MANAGEMENT PLAN: continue Effexor taper, prazosin, buspar and safety monitor. Recoverer will talk to pt about services at [facility]. Anticipate discharge or Friday. TIME SPENT: 15 minutes. Vital Signs Vital Signs Date Time Temp Pulse Resp B/P (MAP) Pulse Ox O2 Delivery O2 Flow Rate FiO2 06/03/17 08:10 101/60 06/03/17 08:10 Room Air 06/03/17 06:20 97.8 62 16 Current Medications Current Medications Acetaminophen (Tylenol Tab) 650 mg Q6HP PRN PO HEADACHE or DISCOMFORT Last administered on 05/31/17t 20:17; Start 05/26/17 at 23:00; Stop 06/25/17 at 22: 59 Al Hydrox/Mg Hydrox/Simethicone (Mylanta) 30 ml Q4HP PRN PO HEARTBURN/ INDIGESTION; Start 05/26/17 at 23:00; Stop 06/25/17 at 22:59 Amphetamine/ Dextroamphetamine (Adderall) 20 mg QAM PO Last administered on 08:09; Start 05/29/17 at 09:00; Stop 06/05/17 at 08:59 Buspirone HCl (Buspar) 10 mg TID PO Last administered on 06/03/17 15:09; Start 06/02/17 at 16:00; Stop 07/02/17 at 15:59 Clonidine HCl (Catapres) 0.1 mg BID PO Last administered on 06/03/17 08:10; Start 05/27/17 at 09:00; Stop 06/26/17 at 08:59 Fluoxetine HCl (PROzac) 20 mg DAILY PO Last administered on 05/27/17 08:41; Start 05/27/17 at 09:00; Stop 05/27/17 at 11:14; Status DC Fluoxetine HCl (PROzac) 40 mg DAILY PO ; Start 05/28/17 at 09:00; Stop at 08:59; Status Cancel Fluoxetine HCl (PROzac) 40 mg DAILY PO ; Start 05/28/17 at 09:00; Stop at 08:59; Status UNV Home Med (Med Rec Complete!) ASDIRECTED XX ; Start 05/26/17 at 22:00; Stop at 22:01; Status DC Hydroxyzine HCl (Atarax) 25 mg Q4HP PRN PO ANXIETY/AGITATION Last administered on 06/03/17 12:55; Start 05/27/17 at 13:00; Stop 06/26/17 at 12:59 Magnesium Hydroxide (Milk Of Magnesia) 30 ml DAILYPRN PRN PO CONSTIPATION Last administered on 05/30/17 10:05; Start 05/26/17 at 23:00; Stop 06/25/17 at 22: 59 Miscellaneous (Unresolved Non-Formulary Med Order) SEE LABEL COMMENTS UNRESOLVED XX ; Start 05/27/17 at 00:01; Stop 05/27/17 at 04:30; Status DC Patient Own Medication (Patient'S Own Med) 1 ea DAILY PO Last administered on 08:09; Start 05/27/17 at 09:00; Stop 06/26/17 at 08:59 Trazodone HCl (Desyrel) 50 mg QHS PO Last administered on 05/29/17 20:57; Start 05/27/17 at 21:00; Stop 05/30/17 at 16:03; Status DC Trazodone HCl (Desyrel) 50 mg QHSP PRN PO INSOMNIA Last administered on 01:17; Start 05/26/17 at 23:00; Stop 05/27/17 at 23:00; Status DC Trazodone HCl (Desyrel) 100 mg QHS PO Last administered on 06/02/17 22:02; Start 05/30/17 at 21:00; Stop 06/29/17 at 20:59 Venlafaxine HCl (Effexor Xr) 37.5 mg QAM PO Last administered on 05/29/17 08:31; Start 05/27/17 at 09:00; Stop 05/29/17 at 09:46; Status DC Venlafaxine HCl (Effexor Xr) 75 mg QAM PO Last administered on 06/02/17 08 :02; Start 05/30/17 at 09:00; Stop 06/02/17 at 15:52; Status DC Venlafaxine HCl (Effexor Xr) 112.5 mg QAM PO Last administered on 08:09; Start 06/03/17 at 09:00; Stop 07/03/17 at 08:59 Allergies Coded Allergies: Penicillins (Verified Allergy, Severe, ANAPHYLAXIS, 12/02/16) Shruti Kingsley Jun 03, 2017 16:54
[2017-06-03 18:00] VITALS: BP 90/60
[2017-06-03] MEDS: traZODone 100 MG TAB PO SCH (20:00)
[2017-06-04 06:44] VITALS: BP 92/59
[2017-06-04] MEDS: ADDERALL 5 MG TAB PO SCH (08:10)
[2017-06-04] MEDS: TRINESSA LO PO SCH (08:10)
[2017-06-04] MEDS: VENLAFAXINE **XR** 37.5 MG CAPSULE PO SCH (08:11)
[2017-06-04] MEDS: busPIRone 10 MG TAB PO SCH ×3 (08:11→20:42)
[2017-06-04] MEDS: cloNIDine 0.1 MG TAB PO SCH ×2 (08:12→20:43)
[2017-06-04] MEDS: hydrOXYzine 25 MG TAB PO PRN (09:36)
--- NOTE | 2017-06-04 14:29 | MHIPNPDOC ---
[facility] Progress Note Progress Note DATE OF SERVICE: 06/04/17 HISTORY: day10 of admission for PTSD crisis and recovery VITAL SIGNS: See below. NEW TEST RESULTS: na. CURRENT MEDICATIONS: See below. MENTAL STATUS EXAMINATION: eneral appearance: Patient is a 37year old female, very petite, who appears younger than her age, in hospital attire, long blonde hair, blue eyes, cooperative. Speech: spontaneous. high pitch voice Thought processes: goal directed Thought content: appropriate. Abstract reasoning and computation: good Description of associations: good Description of abnormal or psychotic thoughts: denies suicidal thoughts, no psychosis illicited. Judgment: fair. Insight: good. Orientation: well oriented x 4. Recent and remote memory: intact. Attention span and concentration: good. Fund of knowledge: Full Mood: depressed Affect: anxious DIAGNOSIS: PTSD, severe, acute Depression, single episode without psychotic features Substance use disorder ASSESSMENT:Kenyetta remains invested in treatment on the unit, attending programming and processing thoughts, memories and emotions. All the while she is maintaining good hygiene and expressing her needs well. She is social with peers. Her anxiety can be acute and pervasive at times. She is awaiting the return of her from [place] sometime today. It will be an emotional time when she see's him after 9 months. She has had a good deal of emotional upheaval during the time he has been away. We anticipate that she will be ready to leave the unit with her by the end of the week and spending time with him will be part of her healing process. She is agreeable to our recommendations regarding outpatient treatment to further her recovery. She will also remain in outpatient substance use treatment and comply with her probationary requirements. Pt is not a danger to herself. Her thoughts of suicide have been replaced with a desire to move from her crisis state to one of peace and calmness. She can be very pragmatic about her situation and is strong enough to know it will not define her but she is still in control of shaping her life the way she wants it to be. MANAGEMENT PLAN: continue Effexor, safety and sleep monitoring and relaxation therapy. TIME SPENT: 25minutes. Vital Signs Vital Signs Date Time Temp Pulse Resp B/P (MAP) Pulse Ox O2 Delivery O2 Flow Rate FiO2 06/04/17 08:12 102/72 06/04/17 06:44 97.6 90 18 Room Air Current Medications Current Medications Acetaminophen (Tylenol Tab) 650 mg Q6HP PRN PO HEADACHE or DISCOMFORT Last administered on 05/31/17 20:17; Start 05/26/17 at 23:00; Stop 06/25/17 at 22: 59 Al Hydrox/Mg Hydrox/Simethicone (Mylanta) 30 ml Q4HP PRN PO HEARTBURN/ INDIGESTION; Start 05/26/17 at 23:00; Stop 06/25/17 at 22:59 Amphetamine/ Dextroamphetamine (Adderall) 20 mg QAM PO Last administered on 08:10; Start 05/29/17 at 09:00; Stop 06/09/17 at 08:59 Buspirone HCl (Buspar) 10 mg TID PO Last administered on 06/04/17 08:11; Start 06/02/17 at 16:00; Stop 07/02/17 at 15:59 Clonidine HCl (Catapres) 0.1 mg BID PO Last administered on 06/04/17 08:12; Start 05/27/17 at 09:00; Stop 06/26/17 at 08:59 Fluoxetine HCl (PROzac) 20 mg DAILY PO Last administered on 05/27/17 08:41; Start 05/27/17 at 09:00; Stop 05/27/17 at 11:14; Status DC Fluoxetine HCl (PROzac) 40 mg DAILY PO ; Start 05/28/17 at 09:00; Stop at 08:59; Status Cancel Fluoxetine HCl (PROzac) 40 mg DAILY PO ; Start 05/28/17 at 09:00; Stop at 08:59; Status UNV Home Med (Med Rec Complete!) ASDIRECTED XX ; Start 05/26/17 at 22:00; Stop at 22:01; Status DC Hydroxyzine HCl (Atarax) 25 mg Q4HP PRN PO ANXIETY/AGITATION Last administered on 06/04/17 09:36; Start 05/27/17 at 13:00; Stop 06/26/17 at 12:59 Magnesium Hydroxide (Milk Of Magnesia) 30 ml DAILYPRN PRN PO CONSTIPATION Last administered on 05/30/17 10:05; Start 05/26/17 at 23:00; Stop 06/25/17 at 22: 59 Miscellaneous (Unresolved Non-Formulary Med Order) SEE LABEL COMMENTS UNRESOLVED XX ; Start 05/27/17 at 00:01; Stop 05/27/17 at 04:30; Status DC Patient Own Medication (Patient'S Own Med) 1 ea DAILY PO Last administered on 08:10; Start 05/27/17 at 09:00; Stop 06/26/17 at 08:59 Trazodone HCl (Desyrel) 50 mg QHS PO Last administered on 05/29/17 20:57; Start 05/27/17 at 21:00; Stop 05/30/17 at 16:03; Status DC Trazodone HCl (Desyrel) 50 mg QHSP PRN PO INSOMNIA Last administered on 01:17; Start 05/26/17 at 23:00; Stop 05/27/17 at 23:00; Status DC Trazodone HCl (Desyrel) 100 mg QHS PO Last administered on 06/03/17 20:00; Start 05/30/17 at 21:00; Stop 06/29/17 at 20:59 Venlafaxine HCl (Effexor Xr) 37.5 mg QAM PO Last administered on 05/29/17 08:31; Start 05/27/17 at 09:00; Stop 05/29/17 at 09:46; Status DC Venlafaxine HCl (Effexor Xr) 75 mg QAM PO Last administered on 06/02/17 08 :02; Start 05/30/17 at 09:00; Stop 06/02/17 at 15:52; Status DC Venlafaxine HCl (Effexor Xr) 112.5 mg QAM PO Last administered on 08:11; Start 06/03/17 at 09:00; Stop 07/03/17 at 08:59 Allergies Coded Allergies: Penicillins (Verified Allergy, Severe, ANAPHYLAXIS, 12/02/16) Shruti Kingsley Jun 04, 2017 14:29
[2017-06-04 18:00] VITALS: BP 99/65
[2017-06-04] MEDS: traZODone 100 MG TAB PO SCH (20:43)
[2017-06-05 06:00] VITALS: BP 104/58
[2017-06-05] MEDS: VENLAFAXINE **XR** 37.5 MG CAPSULE PO SCH (08:34)
[2017-06-05] MEDS: ADDERALL 5 MG TAB PO SCH (08:34)
[2017-06-05] MEDS: TRINESSA LO PO SCH (08:34)
[2017-06-05] MEDS: cloNIDine 0.1 MG TAB PO SCH ×2 (08:34→20:06)
[2017-06-05] MEDS: busPIRone 10 MG TAB PO SCH ×3 (08:34→20:06)
[2017-06-05] MEDS: hydrOXYzine 25 MG TAB PO PRN (13:17)
--- NOTE | 2017-06-05 13:42 | MHIPNPDOC ---
[facility] Progress Note Progress Note DATE OF SERVICE: 06/05/17 HISTORY: day 11 of admission for PTSD crisis episode. VITAL SIGNS: See below. NEW TEST RESULTS: na CURRENT MEDICATIONS: See below. MENTAL STATUS EXAMINATION: Patient is a 37-year old female, who is petite, blonde, good eye contact, wearing hospital attire, cooperative. Speech: spontaneous. high pitch voice Thought processes: goal directed Thought content: appropriate. Abstract reasoning and computation: good Description of associations: good Description of abnormal or psychotic thoughts: denies suicidal thoughts, no psychosis illicited. Judgment: good Insight: good. Orientation: well oriented x 4. Recent and remote memory: intact. Attention span and concentration: good. Fund of knowledge: Full Mood: euthymic, smiling Affect: congruent DIAGNOSIS: PTSD, severe, acute Depression, single episode without psychotic features Substance use disorder ASSESSMENT:pt was finally reunited with her yesterday evening. He does not have to return to [place] and can remain state side with her permanently. He is going to investigate other assistance for Kenyetta through his benefits to make sure she has all the help she needs and if he has to go away for any trainings or the like she will have home visits to help her manage his absence so she feels safe. He appears sincerely committed to her. Pt states she is ready to leave the hospital tomorrow. is comfortable with taking her home. MANAGEMENT PLAN: Kenyetta will follow up with [facility] as an outpatient as well as [facility] addictions for alcohol abuse. TIME SPENT: 25 minutes. Vital Signs Vital Signs Date Time Temp Pulse Resp B/P (MAP) Pulse Ox O2 Delivery O2 Flow Rate FiO2 06/05/17 08:34 104/58 06/05/17 06:00 98.3 55 14 Room Air Current Medications Current Medications Acetaminophen (Tylenol Tab) 650 mg Q6HP PRN PO HEADACHE or DISCOMFORT Last administered on 05/31/17t 20:17; Start 05/26/17 at 23:00; Stop 06/25/17 at 22: 59 Al Hydrox/Mg Hydrox/Simethicone (Mylanta) 30 ml Q4HP PRN PO HEARTBURN/ INDIGESTION; Start 05/26/17 at 23:00; Stop 06/25/17 at 22:59 Amphetamine/ Dextroamphetamine (Adderall) 20 mg QAM PO Last administered on 08:34; Start 05/29/17 at 09:00; Stop 06/09/17 at 08:59 Buspirone HCl (Buspar) 10 mg TID PO Last administered on 06/05/17 08:34; Start 06/02/17 at 16:00; Stop 07/02/17 at 15:59 Clonidine HCl (Catapres) 0.1 mg BID PO Last administered on 06/05/17 08:34; Start 05/27/17 at 09:00; Stop 06/26/17 at 08:59 Fluoxetine HCl (PROzac) 20 mg DAILY PO Last administered on 05/27/17 08:41; Start 05/27/17 at 09:00; Stop 05/27/17 at 11:14; Status DC Fluoxetine HCl (PROzac) 40 mg DAILY PO ; Start 05/28/17 at 09:00; Stop at 08:59; Status Cancel Fluoxetine HCl (PROzac) 40 mg DAILY PO ; Start 05/28/17 at 09:00; Stop at 08:59; Status UNV Home Med (Med Rec Complete!) ASDIRECTED XX ; Start 05/26/17 at 22:00; Stop at 22:01; Status DC Hydroxyzine HCl (Atarax) 25 mg Q4HP PRN PO ANXIETY/AGITATION Last administered on 06/05/17 13:17; Start 05/27/17 at 13:00; Stop 06/26/17 at 12:59 Magnesium Hydroxide (Milk Of Magnesia) 30 ml DAILYPRN PRN PO CONSTIPATION Last administered on 05/30/17 10:05; Start 05/26/17 at 23:00; Stop 06/25/17 at 22: 59 Miscellaneous (Unresolved Non-Formulary Med Order) SEE LABEL COMMENTS UNRESOLVED XX ; Start 05/27/17 at 00:01; Stop 05/27/17 at 04:30; Status DC Patient Own Medication (Patient'S Own Med) 1 ea DAILY PO Last administered on 08:34; Start 05/27/17 at 09:00; Stop 06/26/17 at 08:59 Trazodone HCl (Desyrel) 50 mg QHS PO Last administered on 05/29/17 20:57; Start 05/27/17 at 21:00; Stop 05/30/17 at 16:03; Status DC Trazodone HCl (Desyrel) 50 mg QHSP PRN PO INSOMNIA Last administered on 01:17; Start 05/26/17 at 23:00; Stop 05/27/17 at 23:00; Status DC Trazodone HCl (Desyrel) 100 mg QHS PO Last administered on 06/04/17 20:43; Start 05/30/17 at 21:00; Stop 06/29/17 at 20:59 Venlafaxine HCl (Effexor Xr) 37.5 mg QAM PO Last administered on 05/29/17 08:31; Start 05/27/17 at 09:00; Stop 05/29/17 at 09:46; Status DC Venlafaxine HCl (Effexor Xr) 75 mg QAM PO Last administered on 06/02/17 08 :02; Start 05/30/17 at 09:00; Stop 06/02/17 at 15:52; Status DC Venlafaxine HCl (Effexor Xr) 112.5 mg QAM PO Last administered on 08:34; Start 06/03/17 at 09:00; Stop 07/03/17 at 08:59 Allergies Coded Allergies: Penicillins (Verified Allergy, Severe, ANAPHYLAXIS, 12/02/16) Shruti Kingsley Jun 05, 2017 13:42
[2017-06-05 18:00] VITALS: BP 98/58
[2017-06-05] MEDS: traZODone 100 MG TAB PO SCH (20:06)
[2017-06-06 06:19] VITALS: BP 103/59
[2017-06-06] MEDS ORDERED: TRAZ10TA PO (08:07)
[2017-06-06] MEDS ORDERED: HYDR-3363 PO (08:07)
[2017-06-06] MEDS ORDERED: Amphetamine/Dextroamphetamine PO ×4 (08:07→09:22)
[2017-06-06] MEDS ORDERED: VENL37.52 PO (08:07)
[2017-06-06] MEDS ORDERED: BUSP10TA PO (08:07)
[2017-06-06] MEDS ORDERED: CLONI1TA PO (08:07)
[2017-06-06 08:16] VITALS: BP 103/59
[2017-06-06] MEDS: cloNIDine 0.1 MG TAB PO SCH (08:16)
[2017-06-06] MEDS: ADDERALL 5 MG TAB PO SCH (08:16)
[2017-06-06] MEDS: TRINESSA LO PO SCH (08:16)
[2017-06-06] MEDS: busPIRone 10 MG TAB PO SCH (08:16)
[2017-06-06] MEDS: VENLAFAXINE **XR** 37.5 MG CAPSULE PO SCH (08:16)
[2017-06-06] MEDS: hydrOXYzine 25 MG TAB PO PRN (10:25)
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
== END 2017-06-06 10:33 | disposition home or self-care (01) | DRG 882 ==
LOC: M ED 19:38 → M ED INP 22:52 → M PSY 23:42
PROVIDERS: ADMIT Psychiatry & Neurology Psychiatry; ATTEND Psychiatry & Neurology Child & Adolescent Psychiatry
DX: F43.10 Post-traumatic stress disorder, unspecified (principal); F32.9 Major depressive disorder, single episode, unspecified; Z62.810 Personal history of physical and sexual abuse in childhood; Z79.899 Other long term (current) drug therapy; Z88.0 Allergy status to penicillin

== ENCOUNTER → 2017-06-18 | Outpatient (CLI) | payer OTHER ==
[~2017-06-18] MED LIST changes: +Amphetamine/Dextroamphetamine PO; +BUSP10TA PO; +CLONI1TA PO; +HYDR-3363 PO; +PROZ20CA11 PO; +TRAZ10TA PO; +TRIN1TAB2 PO; +VENL37.52 PO
== END ==
LOC: M OUTALCOH 07:50
PROVIDERS: ATTEND Psychiatry & Neurology Psychiatry
DX: F10.20 Alcohol dependence, uncomplicated (principal)

== ENCOUNTER → 2017-08-07 | Outpatient (RCR) | payer OTHER | LOC: M OUTALCOH 07-14 11:25 | PROVIDERS: ATTEND Psychiatry & Neurology Psychiatry | DX: F10.20 Alcohol dependence, uncomplicated (principal) ==

== ENCOUNTER 2017-08-13 13:53 | Outpatient (RCR) | payer OTHER | END 2017-09-07 | LOC: M OUTALCOH 08-14 10:00 | DX: F10.20 Alcohol dependence, uncomplicated (principal) ==

== ENCOUNTER 2017-08-21 07:45 | Emergency (ER) | payer OTHER ==
[~2017-08-21] VITALS: Ht 139.7 cm; Wt 54.5 kg
[2017-08-21] MEDS ORDERED: PROMETHAZINE 25 MG TAB PO ONE (08:15)
[2017-08-21] MEDS ORDERED: KETOROLAC 30 MG/ML VIAL (J1885) IV ONE (08:15)
[2017-08-21] MEDS ORDERED: ANEXSIA, NORCO 7.5MG/325MG TABLET(HYDROCODONE/APAP) PO ONE (09:30)
[2017-08-21] MEDS ORDERED: PROMETHAZINE INJ 25 MG/ML VIAL (J2550) IV ONE (09:30)
--- NOTE | 2017-08-21 09:30 | REP ---
Cervical spine seven views: There are metallic artifacts, likely earrings. Vertebral body heights, interspacing alignment are normal. Prevertebral soft tissues are normal. The facets are normally aligned. There is no listhesis on flexion or extension. The odontoid view is unremarkable. There are small bilateral cervical ribs. There is no bony foraminal encroachment. Impression: No fracture or listhesis. Metallic earring artifacts. Bilateral cervical ribs. Signed by Nick Hernandez MD 08/21/2017 09:22 A
--- NOTE | 2017-08-21 09:32 | REP ---
Right shoulder three views: Comparison is 01/29/2016. The previous internal fixation plate of the distal clavicle and acromioclavicular joint has been removed. The acromioclavicular joint is mildly widened. There is no elevation of the distal clavicle. There is no acute fracture or dislocation. Mineralization is normal. There are no calcifications or foreign bodies. There are faintly visible screw tracts in the distal fibula from previous internal fixation. Impression: Postsurgical changes. Mild widening of the acromioclavicular joint. No acute fracture or dislocation. Signed by Nick Hernandez MD 08/21/2017 09:24 A
--- NOTE | 2017-08-21 09:34 | REP ---
Lumbar spine five views: Vertebral body heights, interspacing alignment are normal. There is no spondylolysis or spondylolisthesis. The pedicles, facets and sacroiliac articulations are unremarkable. There are abdominal right upper quadrant surgical clips. Impression: Essentially negative lumbar spine. No compression deformity or listhesis. Signed by Nick Hernandez MD 08/21/2017 09:25 A
--- NOTE | 2017-08-21 09:36 | REP ---
Right elbow for views : There is no fracture or dislocation. Mineralization and joint spaces are normal. There are no calcifications or foreign bodies. Impression: Negative right elbow . Signed by Nick Hernandez MD 08/21/2017 09:26 A
[2017-08-21] MEDS ORDERED: IBUP80TA PO (10:17)
[2017-08-21 10:21] VITALS: BP 113/75
== END 2017-08-21 10:30 | disposition home or self-care (01) ==
LOC: M ED 07:45
DX: S50.11XA Contusion of right forearm, initial encounter (principal); S40.011A Contusion of right shoulder, initial encounter; V89.9XXA Person injured in unspecified vehicle accident, initial encounter; Y92.018 Other place in single-family (private) house as the place of occurrence of the external cause; Y93.89 Activity, other specified; Y99.8 Other external cause status; R22.31 Localized swelling, mass and lump, right upper limb; M54.5 Low back pain; R51 Headache; F41.9 Anxiety disorder, unspecified; F33.9 Major depressive disorder, recurrent, unspecified; Z79.3 Long term (current) use of hormonal contraceptives; Z88.0 Allergy status to penicillin
CPT/HCPCS: 72052; 72110; 73030; 73080; 96374; 96375; 99284; J1885

== ENCOUNTER 2017-09-11 15:57 | Outpatient (RCR) | payer OTHER, SELFPAY | END 2017-10-08 | LOC: M OUTALCOH 09-12 09:00 | DX: F10.20 Alcohol dependence, uncomplicated (principal) ==

== ENCOUNTER 2017-10-28 11:30 | Emergency (ER) | payer OTHER ==
[2017-10-28] MEDS: KETOROLAC 30 MG/ML VIAL (J1885) IV (12:15)
[2017-10-28] MEDS: ONDANSETRON 4MG/2ML VIAL (J2405) IV ×2 (12:15→13:45)
[2017-10-28 12:38] LABS: BASO % 0.3 % (0.0-1.0); EOS # 0.1 10^3/uL (0.0-0.50); EOS % 0.9 % (0.0-3.0); HEMATOCRIT 37.3 % (36.0-47.0); HEMOGLOBIN 13.1 g/dl (12.0-16.0); IMMATURE GRANULOCYTE % 0.1 % (0-3.0); LYMPH # 2.8 10^3/uL (1.5-4.5); MEAN CORPUSCULAR HGB CONC 35.1 g/dl (32.0-36.5); MEAN CORPUSCULAR VOLUME 85.6 fl (80.0-96.0); MONO # 0.8 10^3/uL (0.0-0.8); MONO % 10.2 % (0.0-5.0); NEUTROPHILS # 3.8 10^3/uL (1.8-7.7); NEUTROPHILS % 51.5 % (36.0-66.0); PLATELET COUNT, AUTOMATED 244 10^3/uL (150-450); RED BLOOD COUNT 4.36 10^6/uL (4.00-5.40); RED CELL DISTRIBUTION WIDTH 13.2 % (11.5-14.5); WHITE BLOOD COUNT 7.4 10^3/uL (4.0-10.0)
[2017-10-28 12:57] LABS: ANION GAP 9 MEQ/L (8-16); BLOOD UREA NITROGEN 6 MG/DL (7-18); CALCIUM LEVEL 8.3 MG/DL (8.5-10.1); CARBON DIOXIDE LEVEL 24 MEQ/L (21-32); CHLORIDE LEVEL 108 MEQ/L (98-107); CPK CREATINE PHOSPHOKINASE 28 U/L (26-192); CREATININE FOR GFR 0.73 MG/DL (0.55-1.30); GLOMERULAR FILTRATION RATE > 60.0 (>60); GLUCOSE, FASTING 127 MG/DL (70-100); POTASSIUM SERUM 3.4 MEQ/L (3.5-5.1); SODIUM LEVEL 141 MEQ/L (136-145); TROPONIN I < 0.02 NG/ML (< 0.10)
[2017-10-28 12:58] LABS: MB/CK RELATIVE INDEX 3.57 (< OR =4)
[2017-10-28 13:13] LABS: INFLUENZA A AMPLIFICATION NEGATIVE (NEGATIVE); INFLUENZA B AMPLIFICATION NEGATIVE (NEGATIVE)
[2017-10-28] MEDS: NS 1,000 ML IV (13:30)
== END 2017-10-28 15:28 | disposition home or self-care (01) ==
LOC: M ED 11:30
DX: B34.9 Viral infection, unspecified (principal); Z79.899 Other long term (current) drug therapy; Z88.0 Allergy status to penicillin
CPT/HCPCS: J2405